=== PATIENT | female | born 1955 | race Caucasian/White ===

== ENCOUNTER → 2018-11-24 | Outpatient (CLI) | payer BC ==
[~2018-11-24] VITALS: Ht 167.6 cm; Wt 79.1 kg
[~2018-11-24] MED LIST: ACETAMINOPHEN 500 MG TAB PO ONE; ASPI-1044 PO; CEFAZOLIN 2 GM/50 ML (PMX) 50 ML IVPB ONE; CELE100C PO; DEXAMETHASONE 4 MG/ML 1 ML INJ IV ONE; DEXAMETHASONE 4 MG/ML 5 ML INJ ONE; FENTAnyl 50 MCG/ML VIAL ONE; GABA100C14 PO; GLYCOPYRROLATE 0.4 MG INJ ONE; LACTATED RINGER'S 1,000 ML IV* SCH; LIDOCAINE 2% (SDV) 5 ML INJ ONE; MIDAZOLAM 1 MG/ML 2 ML INJ ONE; NEOSTIGMINE 3 MG/3 ML SYRINGE ONE; ONDANSETRON 4 MG INJ ONE; PROPOFOL 20 ML ONE; ROCURONIUM 50 MG INJ ONE; SODI1GRA MC; TRANEXAMIC ACID 1,000 MG in NS 100 ML INTRA-OP X1 IVPB ONE; TRANEXAMIC ACID 1,000 MG in NS 100 ML PRE-OP X1 IVPB ONE
[2018-11-24 16:23] VITALS: Ht 167.6 cm; Wt 79.1 kg
[2018-12-01 09:55] VITALS: BP 110/60; PULSE 113; RESP 20
--- NOTE | 2018-12-01 11:45 | HPN ---
Date/Time of Note Date/Time of Note DATE: 12/01/18 TIME: 11:45 Interval H&P Admission Note Pt. seen H&P reviewed: Systems changes noted below The patient presented with a fever >101 and surgery was cancelled ASHA MOON Dec 01, 2018 11:45
== END | disposition home or self-care (01) ==
LOC: LAB 15:20 → REC 12-01 09:21 → LAB 12-01 09:21 → UNDOADMIN 12-01 09:21 → EDSTATUS 12-01 13:30
PROVIDERS: ATTEND Orthopaedic Surgery
DX: Z01.812 Encounter for preprocedural laboratory examination (principal); M17.12 Unilateral primary osteoarthritis, left knee
CPT/HCPCS: 86850; 86900; 86901; 87081; J0171; J0690; J0735; J1100; J1885; J2250; J2405; J2710; J2795; J3010; J7120

== ENCOUNTER 2019-01-05 10:33 | Inpatient (IN) | payer BC ==
[2018-12-26 13:46] VITALS: Ht 168.9 cm; Wt 79.5 kg
[2019-01-05] VITALS (22 sets, daily range): BP systolic 95–128; BP diastolic 51–70; PULSE 46–80; RESP 10–22
[~2019-01-05] VITALS: Ht 168.9 cm; Wt 79.5 kg
[2019-01-05] MEDS: LACTATED RINGER'S 1,000 ML IV SCH ×2 (11:18→17:49)
[2019-01-05] MEDS ORDERED: LANSOPRAZOLE 30 MG CAP PO ONE (12:00)
[2019-01-05] MEDS ORDERED: CEFAZOLIN 2 GM/50 ML (PMX) 50 ML (FOR WT < 120 KG) IVPB ONE (12:00)
[2019-01-05] MEDS ORDERED: LIDOCAINE 2% (SDV) 5 ML INJ ONE (12:00)
[2019-01-05] MEDS ORDERED: NEOSTIGMINE 10 MG INJ ONE (12:00)
[2019-01-05] MEDS ORDERED: DEXAMETHASONE 4 MG/ML 1 ML INJ IV ONE (12:00)
[2019-01-05] MEDS ORDERED: ACETAMINOPHEN 1000MG/100ML IV 100 ML IVPB ONE (12:00)
--- NOTE | 2019-01-05 12:10 | HPN ---
Date/Time of Note Date/Time of Note DATE: 01/05/19 TIME: 12:10 Interval H&P Admission Note Pt. seen H&P reviewed: No system changes ASHA MOON Jan 05, 2019 12:10
[2019-01-05] MEDS ORDERED: ONDANSETRON 4 MG INJ ONE (12:17)
[2019-01-05] MEDS ORDERED: MIDAZOLAM 1 MG/ML 2 ML INJ ONE (12:17)
[2019-01-05] MEDS ORDERED: ROCURONIUM 50 MG INJ ONE (12:17)
[2019-01-05] MEDS ORDERED: FENTAnyl 50 MCG/ML VIAL ONE (12:17)
[2019-01-05] MEDS ORDERED: CEFAZOLIN 1 GM INJ ONE (12:17)
[2019-01-05] MEDS ORDERED: PROPOFOL 20 ML ONE (12:17)
[2019-01-05] MEDS ORDERED: GLYCOPYRROLATE 0.4 MG INJ ONE (12:17)
[2019-01-05] MEDS ORDERED: DEXAMETHASONE 4 MG/ML 5 ML INJ ONE (12:18)
[2019-01-05] MEDS ORDERED: ROPIVACAINE 0.5 % 30 ML VIAL ONE (12:19)
[2019-01-05] MEDS ORDERED: BACITRACIN 50000 UNITS INJ ONE (12:25)
[2019-01-05] MEDS ORDERED: POLYMYXIN B 500000 UNIT INJ ONE (12:28)
--- NOTE | 2019-01-05 13:08 | PREAC ---
Date/Time of Note Date/Time of Note DATE: 01/05/19 TIME: 13:06 Anesthesia Eval and Record Evaluation Time Pre-Procedure Interview DATE: 01/05/19 TIME: 13:06 Age 63 Sex female NPO: 8 hrs Preoperative diagnosis LEFT KNEE PRIMARY OA Planned procedure LEFT TKA Past Medical History Past Medical History: Includes GI: GERD Surgery & Anesthesia Issues No known issue (GASTRIC SLEEVE) Meds Anticoagulation: No Beta Kemar within 24 hr: No Reason Beta Kemar not given: Pt. not on B-Kemar No Active Prescriptions or Reported Meds Current Medications Lactated Ringer's 1,000 ml @ 125 mls/hr Q8H IV Last administered on 01/05/19at 11:18; Admin Dose 125 MLS/HR; Start 01/05/19 at 12:00 Tranexamic Acid 100 ml @ 200 mls/hr AT INCISION ONCE IVPB ; Start 01/05/19 at 13:30; Stop 01/05/19 at 13:59 Tranexamic Acid 100 ml @ 330 mls/hr AT CLOSURE ONCE IVPB ; Start 01/05/19 at 13:30; Stop 01/05/19 at 13:48 Ropivacaine/ Clonidine/ Epinephrine/ Ketorolac Tromethamine/ Sodium Chloride INTRA-OP ONCE IRR ; Start 01/05/19 at 13:30; Stop 01/05/19 at 13:31 Meds reviewed: Yes Allergies Coded Allergies: levofloxacin (Verified Allergy, Severe, SWELLING, 01/05/19) Allergies Reviewed: Yes Labs/Studies Labs Reviewed: Reviewed by anesthesiologist Blood Bank Test 01/05/19 11:20 Antibody Screen NEGATIVE Blood Type A POSITIVE test: N/A Studies: ECG (SB@50), CXR (NAPD) Pre-procedure Exam Last vitals Vital Signs Date Temp Pulse Resp B/P (MAP) Pulse Ox O2 O2 Flow FiO2 Time Delivery Rate 01/05/19 97.5 58 16 128/62 97 Room Air 11:29 (84) Airway: Adequate mouth opening, Adequate thyromental dist Mallampati: Mallampati II Teeth: Normal Lung: Normal Heart: Normal ASA Physical Status ASA physical status: 2 Emergency: None Planned Anesthetic General/MAC: ETT Neuraxial: Spinal Nerve block: Femoral (left) Planned Pain Management Sub-arachniod narcotics, Single shot nerve block, Parenteral pain med Pre-operative Attestations Prior to commencing anesthesia and surgery, the patient was re-evaluated, there was verification of: *The patient's identity *The results of appropriate recent lab work and preoperative vital signs *The above evaluation not changing prior to induction *Anesthetic plan, risk benefits, alternative and complications discussed with patient/family; questions answered; patient/family understands, accepts and wishes to proceed. Mert Doyle M.D. Jan 05, 2019 13:08
[2019-01-05] MEDS ORDERED: FENTAnyl 50 MCG/ML VIAL IV PRN ×3 (13:30)
[2019-01-05] MEDS ORDERED: NALBUPHINE HCL (10 MG/1 ML) INJ IV PRN (13:30)
[2019-01-05] MEDS ORDERED: HYDROmorphONE 0.5 MG/0.5 ML SYG IV PRN ×2 (13:30)
[2019-01-05] MEDS ORDERED: LABETALOL HCL 20MG INJ IV PRN (13:30)
[2019-01-05] MEDS ORDERED: NALOXONE (0.4 MG/ML) INJ IV PRN ×2 (13:30→16:00)
[2019-01-05] MEDS ORDERED: EPHEDrine SULFATE 50 MG/5 ML SYG IV PRN (13:30)
[2019-01-05] MEDS ORDERED: IPRATROPIUM (NEB) 0.5 MG/2.5 ML AMP HHN PRN (13:30)
[2019-01-05] MEDS ORDERED: HYDROmorphONE 1 MG/5 ML IV SYRINGE IV PRN ×3 (13:30)
[2019-01-05] MEDS ORDERED: ZOLPIDEM 5 MG TAB PO PRN (13:30)
[2019-01-05] MEDS ORDERED: DIPHENHYDRAMINE 50 MG INJ IV PRN ×2 (13:30)
[2019-01-05] MEDS ORDERED: KETOROLAC 15 MG INJ IV PRN ×2 (13:30→16:00)
[2019-01-05] MEDS ORDERED: TRANEXAMIC ACID 1GM/100ML(PMX) 100 ML AT INCISION X1 IVPB ONE (13:30)
[2019-01-05] MEDS ORDERED: TRANEXAMIC ACID 1GM/100ML(PMX) 100 ML AT CLOSURE X1 IVPB ONE (13:30)
[2019-01-05] MEDS ORDERED: MIDAZOLAM 1 MG/ML 2 ML INJ IV PRN (13:30)
[2019-01-05] MEDS ORDERED: OXYCODONE/ACETAMINOPHEN (5/325) TAB PO PRN ×2 (13:30)
[2019-01-05] MEDS ORDERED: hydrALAzine 20 MG INJ IV PRN (13:30)
[2019-01-05] MEDS ORDERED: ONDANSETRON 4 MG INJ IV PRN ×2 (13:30)
[2019-01-05] MEDS ORDERED: ALBUTEROL 0.083% (NEB) 2.5 MG/3 ML AMP HHN PRN (13:30)
[2019-01-05] MEDS ORDERED: MEPERIDINE 25 MG INJ IV PRN (13:30)
[2019-01-05] MEDS ORDERED: TRIMETHOBENZAMIDE 100 MG/ML VIAL IM PRN ×2 (13:30)
[2019-01-05] MEDS ORDERED: KETOROLAC 30 MG INJ IV PRN (13:30)
[2019-01-05] MEDS ORDERED: morphine SULFATE/PF (10 MG/10 ML) INJ ONE (13:57)
--- NOTE | 2019-01-05 15:46 | SIPON ---
Date/Time of Note Date/Time of Note DATE: 01/05/19 TIME: 15:45 Operative Report Preoperative Diagnosis Left knee osteoarthritis Postoperative Diagnosis Same Operation/Procedure Performed Left total knee replacement Surgeon see signature line orthotic assistant HETAL Martinez Anesthesia: spinal Estimated blood loss: 250 - 300 ml's Transfusion Required none Specimen Bone Grafts/Implants Attune knee, size 6 femur, size 5 tibia, 35 patella and 7 mm of polyethylene Complications none ASHA MOON Jan 05, 2019 15:46
--- NOTE | 2019-01-05 15:49 | OPR ---
Date/Time of Note Date/Time of Note DATE: 01/05/19 TIME: 15:46 Operative Report Procedure Date: Jan 05, 2019 Preoperative Diagnosis Left knee osteoarthritis Postoperative Diagnosis Same Operation/Procedure Performed Left total knee replacement Surgeon see signature line Typecasting Machine Operator HETAL Martinez Anesthesia Type: spinal Estimated Blood Loss: 250 - 300 ml's Transfusion none Specimen Bone Grafts/Implants Attune knee, size 6 femur, 5 tibia, 35 patella and 7 mm of polyethylene Tubes/Drains None Complications none Pt Condition Post Procedure: stable Disposition: PACU Indications The patient is a 63-year-old female with advanced arthritis of her left knee Procedure Description The patient was placed supine on the operating room table. The left knee was prepped and draped in usual manner. Examination of the left knee showed flexion deformity of 10 degrees further flexion to 90. There was severe crepitus. An anterior incision was made. A mid vastus approach was made. The patella was displaced laterally without everting it. There was advanced arthritis of the knee with complete loss of cartilage and large osteophytes and loose bodies. Osteophytes and loose bodies were removed. Using intramedullary alignment, the distal femoral cut was made in 5 degrees of valgus. The femur was measured to be a size 6 from the [place] knee system. Anterior posterior and chamfer cuts were made. A notch was cut in the distal femur to accommodate the posterior stabilized femoral component. PCL was sacrificed, remnants of the menisci were removed. The tibia was cut using external alignment and the patella cut using a freehand technique. Trials were inserted including a 6 femur, 5 tibia, 35 patella and 7 mm of polyethylene. The knee had excellent range of motion with good stability and balance. Tracking was satisfactory. X-rays confirm proper alignment of the implants. Once satisfactory alignment was confirmed, final implants were cemented in place using a 6 narrow femur, 5 tibia, 35 patella. Excess cement was removed. 7 mm of polyethylene were placed in the knee closed in layers using #1 strata fix for deep fascia 2-0 Vicryl for subcutaneous tissue and 3-0 Monocryl for the skin. The knee was injected with pain cocktail ASHA MOON Jan 05, 2019 15:48
[2019-01-05] MEDS: CEFAZOLIN 2 GM/50 ML (PMX) 50 ML IVPB SCH (16:00)
[2019-01-05] MEDS ORDERED: MAGNESIUM HYDROXIDE 30ML CUP PO PRN (16:00)
[2019-01-05] MEDS ORDERED: NACL 0.9% 3 ML SYG IV SCH (16:00)
[2019-01-05] MEDS ORDERED: oxyCODONE 5 MG TAB PO PRN (16:00)
--- NOTE | 2019-01-05 16:36 | CONS ---
Assessment/Plan Assessment/Plan Problems: (1) Primary osteoarthritis of left knee Status: Resolved Comment: Per primary team (2) Aftercare following right knee joint replacement surgery Status: Acute Comment: Doing well POD#0. Primary team to manage PT and pain control. Will monitor for medical issues and will be happy to manage should they arise. Will follow with you. Consultation Date/Type/Reason Admit Date/Time Jan 05, 2019 at 10:33 Date of Consultation: Jan 05, 2019 Type of Consult Medicine Reason for Consultation Medical management Requesting Provider: ASHA MOON Date/Time of Note DATE: 01/05/19 TIME: 16:29 Hx of Present Illness 63 y/o C F w/ h/o morbid obesity and longstanding OA L knee. Pt. has lost 135 pounds as result of sleeve gastrectomy and now that she is more fit, finds that she was unable to do activity she wanted to do. Decided to have L TKA scheduled for today. Now POD#0 and doing well. Constitutional: no complaints, improved Eyes: no complaints ENT: no complaints Respiratory: no complaints Cardiovascular: no complaints Gastrointestinal: no complaints Genitourinary: no complaints Musculoskeletal: no complaints Neurologic: no complaints Past Medical History Medical History: no pertinent history Home Meds No Active Prescriptions or Reported Meds Medications Current Medications Lactated Ringer's 1,000 ml @ 125 mls/hr Q8H IV Last administered on 01/05/19at 11:18; Admin Dose 125 MLS/HR; Start 01/05/19 at 12:00 Hydromorphone HCl (Dilaudid) 0.2 mg PACU PRN IV MILD PAIN 1-3; Start 01/05/19 at 13:30; Stop 01/05/19 at 18:00 Hydromorphone HCl (Dilaudid) 0.4 mg PACU PRN IV MOD PAIN 4-6; Start 01/05/19 at 13:30; Stop 01/05/19 at 18:00 Hydromorphone HCl (Dilaudid) 0.6 mg PACU PRN IV SEVERE PAIN 7-10; Start 01/05/19 at 13:30; Stop 01/05/19 at 18:00 Fentanyl (Sublimaze) 25 mcg PACU ORDER PRN IV MILD PAIN 1-3; Start 01/05/19 at 13:30; Stop 01/05/19 at 18:00 Fentanyl (Sublimaze) 50 mcg PACU ORDER PRN IV MOD PAIN 4-6; Start 01/05/19 at 13:30; Stop 01/05/19 at 18:00 Fentanyl (Sublimaze) 75 mcg PACU ORDER PRN IV SEVERE PAIN 7-10; Start 01/05/19 at 13:30; Stop 01/05/19 at 18:00 Oxycodone/ Acetaminophen (Percocet (5/ 325)) 1 tab PACU ORDER PRN PO .PAIN 1-5; Start 01/05/19 at 13:30; Stop 01/05/19 at 18:00 Oxycodone/ Acetaminophen (Percocet (5/ 325)) 2 tab PACU ORDER PRN PO .PAIN 6-10; Start 01/05/19 at 13:30; Stop 01/05/19 at 18:00 Ondansetron HCl (Zofran Inj) 4 mg PACU ORDER PRN IV NAUSEA/VOMITING; Start 01/05/19 at 13:30; Stop 01/05/19 at 18:00 Trimethobenzamide HCl (Tigan) 200 mg PACU ORDER PRN IM NAUSEA/VOMITING; Start 01/05/19 at 13:30; Stop 01/05/19 at 18:00 Labetalol HCl (Labetalol) 5 mg PACU ORDER PRN IV HIGH BLOOD PRESSURE; Start 01/05/19 at 13:30; Stop 01/05/19 at 18:00 Hydralazine HCl (Apresoline) 5 mg PACU ORDER PRN IV HIGH BLOOD PRESSURE; Start 01/05/19 at 13:30; Stop 01/05/19 at 18:00 Ephedrine Sulfate 5 mg PACU ORDER PRN IV BLOOD PRESSURE SUPPORT; Start 01/05/19 at 13:30; Stop 01/05/19 at 18:00 Albuterol (Proventil 0.083% (Neb)) 2.5 mg PACU ORDER PRN HHN .WHEEZING; Start 01/05/19 at 13:30; Stop 01/05/19 at 18:00 Ipratropium [place] (Atrovent 0.02% (Neb)) 0.5 mg PACU ORDER PRN HHN .WHEEZING; Start 01/05/19 at 13:30; Stop 01/05/19 at 18:00 Meperidine HCl (Demerol) 25 mg PACU ORDER PRN IV .RIGORS; Start 01/05/19 at 13:30; Stop 01/05/19 at 18:00 Diphenhydramine HCl (Benadryl) 25 mg PACU ORDER PRN IV .PRURITUS; Start 01/05/19 at 13:30; Stop 01/05/19 at 18:00 Midazolam HCl (Versed) 0.5 mg PACU ORDER PRN IV .ANXIETY; Start 01/05/19 at 13:30; Stop 01/05/19 at 18:00 Hydromorphone HCl (Dilaudid) 0.2 mg Q2H PRN IV .PAIN 1-5; Start 01/05/19 at 13:30; Stop 01/06/19 at 13:11 Hydromorphone HCl (Dilaudid) 0.4 mg Q2H PRN IV .PAIN 6-10; Start 01/05/19 at 13:30; Stop 01/06/19 at 13:11 Ketorolac Tromethamine (Toradol) 15 mg Q6H PRN IV .PAIN 6-10; Start 01/05/19 at 13:30; Stop 01/06/19 at 13:29 Diphenhydramine HCl (Benadryl) 25 mg Q4H PRN IV .PRURITUS; Start 01/05/19 at 13:30; Stop 01/06/19 at 13:11 Nalbuphine HCl (Nubain) 10 mg Q4H PRN IV .PRURITUS; Start 01/05/19 at 13:30; Stop 01/06/19 at 13:11 Ondansetron HCl (Zofran Inj) 4 mg Q6H PRN IV .NAUSEA/VOMITING; Start 01/05/19 at 13:30; Stop 01/06/19 at 13:11 Trimethobenzamide HCl (Tigan) 200 mg Q6H PRN IM .NAUSEA/VOMITING; Start 01/05/19 at 13:30 Zolpidem Tartrate (Ambien) 5 mg HS MAY REPEAT X 1 PRN PO .INSOMNIA; Start 01/05/19 at 13:30; Stop 01/06/19 at 13:11 Naloxone HCl (Narcan) 0.2 mg Q2M PRN IV .RESP RATE; Start 01/05/19 at 13:30; Stop 01/06/19 at 13:11 Miscellaneous Information (* Miscellaneous Pharmacy Order) DURAMORPH: 0.1 MG SPI... GIVEN NEURAXIAL XX ; Start 01/05/19 at 13:30 IV Flush (NS 3 ml) 3 ml PER PROTOCOL IV ; Start 01/05/19 at 16:00 Oxycodone HCl (Roxicodone) 10 mg Q4H PRN PO .PAIN; Start 01/05/19 at 16:00 Oxycodone HCl (Roxicodone) 5 mg Q4H PRN PO .PAIN; Start 01/05/19 at 16:00 Ketorolac Tromethamine (Toradol) 15 mg Q6H PRN IV .PAIN; Start 01/05/19 at 16:00 Ondansetron HCl (Zofran Inj) 4 mg Q4H PRN IV NAUSEA/VOMITING; Start 01/06/19 at 16:00 Cefazolin Sodium/ Dextrose 50 ml @ 100 mls/hr Q8H IVPB ; Start 01/05/19 at 16:00; Stop 01/06/19 at 08:29 Celecoxib (Celebrex) 100 mg BID PO ; Start 01/06/19 at 09:00 Gabapentin (Neurontin) 100 mg TID PO ; Start 01/05/19 at 21:00 Pantoprazole (Protonix Tab) 40 mg DAILY@06 PO ; Start 01/07/19 at 06:00 Docusate Sodium (Colace) 200 mg BID PO ; Start 01/06/19 at 09:00; Stop 01/09/19 at 08:59 Magnesium Hydroxide (Milk Of Mag) 30 ml HS PRN PO .CONSTIPATION; Start 01/05/19 at 16:00 Naloxone HCl (Narcan) 0.2 mg Q2M PRN IV .RESP RATE; Start 01/05/19 at 16:00 Aspirin (Halfprin) 81 mg BID PO ; Start 01/06/19 at 09:00 Allergies: Coded Allergies: levofloxacin (Verified Allergy, Severe, SWELLING, 01/05/19) Past Surgical History Past Surgical Hx: other (sleeve gastrectomy) Family History Significant Family History: heart disease (father) Social History david 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, has MFA in theater, 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, single, 1 child Alcohol Use: rarely Smoking Status: Never smoker Drug Use: none Exam/Review of Systems Exam Vitals Vital Signs Date Temp Pulse Resp B/P (MAP) Pulse Ox O2 O2 Flow FiO2 Time Delivery Rate 01/05/19 98.1 16:20 01/05/19 58 16 128/62 97 Room Air 11:29 (84) Intake and Output 01/04/19 01/04/19 01/05/19 1515:00 23:00 07:00 IntakeIntake Total 2200 ml BalanceBalance 2200 ml Constitutional: alert, oriented, well developed Psych: no complaints, nl mood/affect Eyes: nl conjunctiva, EOMI, nl lids, nl sclera, PERRL ENMT: nl external ears & nose, mucosa pink and moist Neck: supple, non-tender; No bruits, No masses, No thyromegaly Respiratory: clear to auscultation, normal air movement Cardiovascular: regular rate and rhythm, nl pulses; No edema, No murmurs/extra sounds, No rub Gastrointestinal: soft, nl liver, spleen, non-tender, bowel sounds; No mass, No rebound or guarding Musculoskeletal: nl extremities to inspection Extremities: normal pulses; No cyanosis, No clubbing, No edema Neurological: AGRICULTURAL EXTENSION AGENT II-XII intact, nl mental status, nl speech, nl strength Medications Medication Current Medications Lactated Ringer's 1,000 ml @ 125 mls/hr Q8H IV Last administered on 01/05/19at 11:18; Admin Dose 125 MLS/HR; Start 01/05/19 at 12:00 Hydromorphone HCl (Dilaudid) 0.2 mg PACU PRN IV MILD PAIN 1-3; Start 01/05/19 at 13:30; Stop 01/05/19 at 18:00 Hydromorphone HCl (Dilaudid) 0.4 mg PACU PRN IV MOD PAIN 4-6; Start 01/05/19 at 13:30; Stop 01/05/19 at 18:00 Hydromorphone HCl (Dilaudid) 0.6 mg PACU PRN IV SEVERE PAIN 7-10; Start 01/05/19 at 13:30; Stop 01/05/19 at 18:00 Fentanyl (Sublimaze) 25 mcg PACU ORDER PRN IV MILD PAIN 1-3; Start 01/05/19 at 13:30; Stop 01/05/19 at 18:00 Fentanyl (Sublimaze) 50 mcg PACU ORDER PRN IV MOD PAIN 4-6; Start 01/05/19 at 13:30; Stop 01/05/19 at 18:00 Fentanyl (Sublimaze) 75 mcg PACU ORDER PRN IV SEVERE PAIN 7-10; Start 01/05/19 at 13:30; Stop 01/05/19 at 18:00 Oxycodone/ Acetaminophen (Percocet (5/ 325)) 1 tab PACU ORDER PRN PO .PAIN 1-5; Start 01/05/19 at 13:30; Stop 01/05/19 at 18:00 Oxycodone/ Acetaminophen (Percocet (5/ 325)) 2 tab PACU ORDER PRN PO .PAIN 6-10; Start 01/05/19 at 13:30; Stop 01/05/19 at 18:00 Ondansetron HCl (Zofran Inj) 4 mg PACU ORDER PRN IV NAUSEA/VOMITING; Start 01/05/19 at 13:30; Stop 01/05/19 at 18:00 Trimethobenzamide HCl (Tigan) 200 mg PACU ORDER PRN IM NAUSEA/VOMITING; Start 01/05/19 at 13:30; Stop 01/05/19 at 18:00 Labetalol HCl (Labetalol) 5 mg PACU ORDER PRN IV HIGH BLOOD PRESSURE; Start 01/05/19 at 13:30; Stop 01/05/19 at 18:00 Hydralazine HCl (Apresoline) 5 mg PACU ORDER PRN IV HIGH BLOOD PRESSURE; Start 01/05/19 at 13:30; Stop 01/05/19 at 18:00 Ephedrine Sulfate 5 mg PACU ORDER PRN IV BLOOD PRESSURE SUPPORT; Start 01/05/19 at 13:30; Stop 01/05/19 at 18:00 Albuterol (Proventil 0.083% (Neb)) 2.5 mg PACU ORDER PRN HHN .WHEEZING; Start 01/05/19 at 13:30; Stop 01/05/19 at 18:00 Ipratropium [place] (Atrovent 0.02% (Neb)) 0.5 mg PACU ORDER PRN HHN .WHEEZING; Start 01/05/19 at 13:30; Stop 01/05/19 at 18:00 Meperidine HCl (Demerol) 25 mg PACU ORDER PRN IV .RIGORS; Start 01/05/19 at 13:30; Stop 01/05/19 at 18:00 Diphenhydramine HCl (Benadryl) 25 mg PACU ORDER PRN IV .PRURITUS; Start 01/05/19 at 13:30; Stop 01/05/19 at 18:00 Midazolam HCl (Versed) 0.5 mg PACU ORDER PRN IV .ANXIETY; Start 01/05/19 at 13:30; Stop 01/05/19 at 18:00 Hydromorphone HCl (Dilaudid) 0.2 mg Q2H PRN IV .PAIN 1-5; Start 01/05/19 at 13:30; Stop 01/06/19 at 13:11 Hydromorphone HCl (Dilaudid) 0.4 mg Q2H PRN IV .PAIN 6-10; Start 01/05/19 at 13:30; Stop 01/06/19 at 13:11 Ketorolac Tromethamine (Toradol) 15 mg Q6H PRN IV .PAIN 6-10; Start 01/05/19 at 13:30; Stop 01/06/19 at 13:29 Diphenhydramine HCl (Benadryl) 25 mg Q4H PRN IV .PRURITUS; Start 01/05/19 at 13:30; Stop 01/06/19 at 13:11 Nalbuphine HCl (Nubain) 10 mg Q4H PRN IV .PRURITUS; Start 01/05/19 at 13:30; Stop 01/06/19 at 13:11 Ondansetron HCl (Zofran Inj) 4 mg Q6H PRN IV .NAUSEA/VOMITING; Start 01/05/19 at 13:30; Stop 01/06/19 at 13:11 Trimethobenzamide HCl (Tigan) 200 mg Q6H PRN IM .NAUSEA/VOMITING; Start 01/05/19 at 13:30 Zolpidem Tartrate (Ambien) 5 mg HS MAY REPEAT X 1 PRN PO .INSOMNIA; Start 01/05/19 at 13:30; Stop 01/06/19 at 13:11 Naloxone HCl (Narcan) 0.2 mg Q2M PRN IV .RESP RATE; Start 01/05/19 at 13:30; Stop 01/06/19 at 13:11 Miscellaneous Information (* Miscellaneous Pharmacy Order) DURAMORPH: 0.1 MG SPI... GIVEN NEURAXIAL XX ; Start 01/05/19 at 13:30 IV Flush (NS 3 ml) 3 ml PER PROTOCOL IV ; Start 01/05/19 at 16:00 Oxycodone HCl (Roxicodone) 10 mg Q4H PRN PO .PAIN; Start 01/05/19 at 16:00 Oxycodone HCl (Roxicodone) 5 mg Q4H PRN PO .PAIN; Start 01/05/19 at 16:00 Ketorolac Tromethamine (Toradol) 15 mg Q6H PRN IV .PAIN; Start 01/05/19 at 16:00 Ondansetron HCl (Zofran Inj) 4 mg Q4H PRN IV NAUSEA/VOMITING; Start 01/06/19 at 16:00 Cefazolin Sodium/ Dextrose 50 ml @ 100 mls/hr Q8H IVPB ; Start 01/05/19 at 16:00; Stop 01/06/19 at 08:29 Celecoxib (Celebrex) 100 mg BID PO ; Start 01/06/19 at 09:00 Gabapentin (Neurontin) 100 mg TID PO ; Start 01/05/19 at 21:00 Pantoprazole (Protonix Tab) 40 mg DAILY@06 PO ; Start 01/07/19 at 06:00 Docusate Sodium (Colace) 200 mg BID PO ; Start 01/06/19 at 09:00; Stop 01/09/19 at 08:59 Magnesium Hydroxide (Milk Of Mag) 30 ml HS PRN PO .CONSTIPATION; Start 01/05/19 at 16:00 Naloxone HCl (Narcan) 0.2 mg Q2M PRN IV .RESP RATE; Start 01/05/19 at 16:00 Aspirin (Halfprin) 81 mg BID PO ; Start 01/06/19 at 09:00 MARCO KNOTT MD Jan 05, 2019 16:36
--- NOTE | 2019-01-05 16:38 | PAC ---
Date/Time of Note Date/Time of Note DATE: 01/05/19 TIME: 16:38 Post-Anesthesia Notes Post-Anesthesia Note Last documented vital signs Vital Signs Date Temp Pulse Resp B/P (MAP) Pulse Ox O2 O2 Flow FiO2 Time Delivery Rate 01/05/19 98.1 16:38 01/05/19 58 16 128/62 97 Room Air 11:29 (84) Activity: WNL Respiratory function: WNL Cardiovascular function: WNL Mental status: Baseline Pain reasonably controlled: Yes Hydration appropriate: Yes Nausea/Vomiting absent: Yes Mert Doyle M.D. Jan 05, 2019 16:38
[2019-01-05] MEDS: GABAPENTIN 100 MG CAP PO SCH (20:52)
[2019-01-06] VITALS (8 sets, daily range): BP systolic 90–134; BP diastolic 54–65; PULSE 56–66; RESP 17–20
[2019-01-06] MEDS: CEFAZOLIN 2 GM/50 ML (PMX) 50 ML IVPB SCH ×2 (00:10→08:19)
[2019-01-06] MEDS: LACTATED RINGER'S 1,000 ML IV SCH ×3 (05:35→20:00)
[2019-01-06] MEDS: CELECOXIB 100 MG CAP PO SCH ×2 (08:18→20:51)
[2019-01-06] MEDS: ASPIRIN (EC) 81 MG TAB PO SCH ×2 (08:18→20:51)
[2019-01-06] MEDS: GABAPENTIN 100 MG CAP PO SCH ×3 (08:18→20:50)
[2019-01-06] MEDS: DOCUSATE SODIUM 100 MG CAP PO SCH ×2 (08:18→20:51)
[2019-01-06] MEDS ORDERED: SOD CHLORIDE 0.9% 1,000 ML IV ONE (15:00)
--- NOTE | 2019-01-06 15:10 | RADRPT ---
Vent Rate: 58 bpm RR Interval: 0 msec W[place] Interval: 132 msec QRS Duration: 86 msec QT Interval: 422 msec QTC Interval: 414 msec P-R-T [place]: 72 - 71 - 68 degrees Sinus bradycardia Otherwise normal ECG Electronically Signed By: Roberto Aguilar
--- NOTE | 2019-01-06 15:20 | PN ---
Date/Time of Note Date/Time of Note DATE: 01/06/19 TIME: 15:19 Assessment/Plan Lines/Catheters IV Catheter Type (from Nrs): Peripheral IV Assessment/Plan Assessment/Plan The patient will be discharged home, follow up in 2 weeks. Subjective 24 Hr Interval Summary progressing well after TKA Exam/Review of Systems Vital Signs Vitals Vital Signs Date Temp Pulse Resp B/P (MAP) Pulse Ox O2 O2 Flow FiO2 Time Delivery Rate 01/06/19 98.0 65 18 105/55 13:55 (72) 01/06/19 96 Room Air 08:09 01/05/19 2.0 16:43 Intake and Output 01/05/19 01/05/19 01/06/19 1515:00 23:00 07:00 IntakeIntake Total 200 ml 200 ml 1050 ml OutputOutput Total 50 ml BalanceBalance 200 ml 150 ml 1050 ml Exam Free Text/Dictation dressing intact, no NV deficit Results Result Diagram: 01/06/190 01/06/19 0420 ASHA MOON Jan 06, 2019 15:20
[2019-01-06] MEDS ORDERED: ONDANSETRON 4 MG INJ IV PRN (16:00)
--- NOTE | 2019-01-06 17:42 | CONS ---
Assessment/Plan Assessment/Plan Problems: (1) Syncope Status: Resolved Comment: Happened x 1 following PT. Pt. reports propensity towards syncope in the past. Have given 1 L NS IV bolus. Doubt this will recur. No further w/u required. (2) Primary osteoarthritis of left knee Status: Resolved Comment: Per primary team (3) Aftercare following right knee joint replacement surgery Status: Acute Comment: Doing well POD#1. Primary team was planning d/c today but will monit or until tomorrow and plan d/c at that time if syncope does not recur. Consultation Date/Type/Reason Admit Date/Time Jan 05, 2019 at 10:33 Initial Consult Date 01/05/19 Type of Consult Medicine Reason for Consultation Medical Management Requesting Provider: ASHA MOON Date/Time of Note DATE: 01/06/19 TIME: 17:39 24 HR Interval Summary Constitutional: no complaints, improved Detailed Summary Respiratory: no complaints Cardiovascular: other (syncope x 1 today after PT) Gastrointestinal: no complaints Genitourinary: no complaints Musculoskeletal: no complaints Neurologic: no complaints Exam/Review of Systems Exam Vitals VS - Last 72 Hours, by Label Date Temp Pulse Resp B/P (MAP) Pulse Ox O2 O2 Flow FiO2 Time Delivery Rate 01/06/19 58 104/58 17:00 (73) 01/06/19 58 97/55 (69) 15:30 01/06/19 56 18 90/54 (66) 94 Room Air 14:45 01/06/19 98.0 65 18 105/55 13:55 (72) 01/06/19 97.8 57 18 98/54 (69) 96 Room Air 08:09 01/06/19 98.0 56 18 105/61 98 Room Air 05:37 (76) 01/06/19 98.6 60 17 134/65 98 Room Air 00:09 (88) 01/05/19 52 18 106/63 96 Room Air 21:00 (77) 01/05/19 98.3 51 20 109/61 96 Room Air 19:52 (77) 01/05/19 56 18 101/62 94 Room Air 19:20 (75) 01/05/19 47 16 95/51 (66) 98 Room Air 18:42 01/05/19 46 16 97/55 (69) 98 Room Air 18:30 01/05/19 60 16 118/70 98 Room Air 18:00 (86) 01/05/19 97.0 61 16 106/64 98 Room Air 17:45 (78) 01/05/19 52 22 105/57 97 Room Air 17:23 (73) 01/05/19 52 15 103/54 97 Room Air 17:18 (70) 01/05/19 58 13 101/57 97 Room Air 17:13 (72) 01/05/19 52 13 103/55 96 Room Air 17:08 (71) 01/05/19 52 10 117/54 97 Room Air 17:03 (75) 01/05/19 58 13 104/56 100 Room Air 16:58 (72) 01/05/19 52 11 106/57 100 Room Air 16:53 (73) 01/05/19 52 13 107/62 100 Room Air 16:48 (77) 01/05/19 56 10 103/60 100 Nasal 2.0 16:43 (74) Cannula 01/05/19 58 14 109/61 100 Nasal 2.0 16:38 (77) Cannula 01/05/19 60 10 107/57 100 Nasal 2.0 16:33 (74) Cannula 01/05/19 74 19 114/65 99 Nasal 2.0 16:28 (81) Cannula 01/05/19 80 16 119/61 100 Nasal 2.0 16:23 (80) Cannula 01/05/19 98.1 16:20 01/05/19 98.0 80 16 125/64 100 Nasal 2.0 16:18 (84) Cannula 01/05/19 97.5 58 16 128/62 97 Room Air 11:29 (84) Vital Signs Date Temp Pulse Resp B/P (MAP) Pulse Ox O2 O2 Flow FiO2 Time Delivery Rate 01/06/19 58 104/58 17:00 (73) 01/06/19 18 94 Room Air 14:45 01/06/19 98.0 13:55 01/05/19 2.0 16:43 Intake and Output 01/05/19 01/05/19 01/06/19 1515:00 23:00 07:00 IntakeIntake Total 200 ml 200 ml 1050 ml OutputOutput Total 50 ml BalanceBalance 200 ml 150 ml 1050 ml Constitutional: alert, oriented, well developed Psych: no complaints, nl mood/affect Respiratory: clear to auscultation, normal air movement Cardiovascular: regular rate and rhythm, nl pulses; No edema, No murmurs/extra sounds, No rub Gastrointestinal: soft, nl liver, spleen, non-tender, bowel sounds; No mass, No rebound or guarding Musculoskeletal: nl extremities to inspection Extremities: normal pulses; No cyanosis, No clubbing, No edema Neurological: BIBLIOGRAPHIC SERVICES SPECIALIST II-XII intact, nl mental status, nl speech, nl strength Results Result Diagram: 01/06/1941901/06/19 0420 Results 24hrs Laboratory Tests Test 01/06/19 04:20 White Blood Count 9.6 Red Blood Count 3.19 L Hemoglobin 9.9 L Hematocrit 30.1 L Mean Corpuscular Volume 94.4 Mean Corpuscular Hemoglobin 31.0 Mean Corpuscular Hemoglobin Concent 32.9 Red Cell Distribution Width 13.2 Platelet Count 192 Mean Platelet Volume 10.2 Immature Granulocytes % 0.300 Neutrophils % 88.4 H Lymphocytes % 6.0 L Monocytes % 5.2 Eosinophils % 0.0 Basophils % 0.1 Nucleated Red Blood Cells % 0.0 Immature Granulocytes # 0.030 Neutrophils # 8.5 H Lymphocytes # 0.6 L Monocytes # 0.5 Eosinophils # 0.0 Basophils # 0.0 Nucleated Red Blood Cells # 0.0 Sodium Level 136 Potassium Level 4.5 Chloride Level 104 Carbon Dioxide Level 27 Anion Gap 5 Blood Urea Nitrogen 13 Creatinine 0.51 Est Glomerular Filtrat Rate mL/min > 60 Glucose Level 135 Calcium Level 9.1 Medications Medication Current Medications Lactated Ringer's 1,000 ml @ 125 mls/hr Q8H IV Last administered on 01/06/19at 05:35; Admin Dose 125 MLS/HR; Start 01/05/19 at 12:00 Trimethobenzamide HCl (Tigan) 200 mg Q6H PRN IM .NAUSEA/VOMITING; Start 01/05/19 at 13:30 Miscellaneous Information (* Miscellaneous Pharmacy Order) DURAMORPH: 0.1 MG SPI... GIVEN NEURAXIAL XX ; Start 01/05/19 at 13:30 IV Flush (NS 3 ml) 3 ml PER PROTOCOL IV ; Start 01/05/19 at 16:00 Oxycodone HCl (Roxicodone) 10 mg Q4H PRN PO .PAIN; Start 01/05/19 at 16:00 Oxycodone HCl (Roxicodone) 5 mg Q4H PRN PO .PAIN; Start 01/05/19 at 16:00 Ketorolac Tromethamine (Toradol) 15 mg Q6H PRN IV .PAIN; Start 01/05/19 at 16:00 Ondansetron HCl (Zofran Inj) 4 mg Q4H PRN IV NAUSEA/VOMITING Last administered on 01/05/19at 22:59; Admin Dose 4 MG; Start 01/06/19 at 16:00 Celecoxib (Celebrex) 100 mg BID PO Last administered on 01/06/19at 08:18; Admin Dose 100 MG; Start 01/06/19 at 09:00 Gabapentin (Neurontin) 100 mg TID PO Last administered on 01/06/19at 14:00; Admin Dose 100 MG; Start 01/05/19 at 21:00 Pantoprazole (Protonix Tab) 40 mg DAILY@06 PO ; Start 01/07/19 at 06:00 Docusate Sodium (Colace) 200 mg BID PO Last administered on 01/06/19at 08:18; Admin Dose 200 MG; Start 01/06/19 at 09:00; Stop 01/09/19 at 08:59 Magnesium Hydroxide (Milk Of Mag) 30 ml HS PRN PO .CONSTIPATION; Start 01/05/19 at 16:00 Naloxone HCl (Narcan) 0.2 mg Q2M PRN IV .RESP RATE; Start 01/05/19 at 16:00 Aspirin (Halfprin) 81 mg BID PO Last administered on 01/06/19at 08:18; Admin Dose 81 MG; Start 01/06/19 at 09:00 MARCO KNOTT MD Jan 06, 2019 17:42
[2019-01-06] MEDS: oxyCODONE 5 MG TAB PO PRN (22:22)
[2019-01-07 02:04] VITALS: BP 109/51; PULSE 58; RESP 20
[2019-01-07] MEDS: LACTATED RINGER'S 1,000 ML IV SCH (04:00)
[2019-01-07] MEDS ORDERED: PANTOPRAZOLE (EC) 40 MG TAB PO SCH (06:00)
[2019-01-07] MEDS: oxyCODONE 5 MG TAB PO PRN (06:11)
[2019-01-07 07:22] VITALS: BP 125/68; PULSE 68; RESP 18
[2019-01-07] MEDS: ASPIRIN (EC) 81 MG TAB PO SCH (08:14)
[2019-01-07] MEDS: GABAPENTIN 100 MG CAP PO SCH ×2 (08:14→12:29)
[2019-01-07] MEDS: DOCUSATE SODIUM 100 MG CAP PO SCH (08:14)
[2019-01-07] MEDS: CELECOXIB 100 MG CAP PO SCH (08:14)
--- NOTE | 2019-01-07 10:48 | PDOCDIS ---
Discharge Instructions CONDITION [id number] Patient Condition: [id number] Good HOME CARE INSTRUCTIONS: [id number] Diet Instructions: [id number] Regular ACTIVITY: [id number] Activity Restrictions: [id number] Slowly Increase Activity Rest between Activity Avoid heavy lifting Do not Drive Do not operate Machinery Do not operate Power Tool Avoid Heavy Housework [id number] Bathing Restrictions: [id number] Tub Bath FOLLOW UP/APPOINTMENTS Follow-up Plan f/u w/ Dr. Rice as scheduled MARCO KNOTT MD Jan 07, 2019 10:48
[2019-01-07] MEDS ORDERED: GABA100C14 PO (10:53)
[2019-01-07] MEDS ORDERED: CELE100C PO (10:53)
[2019-01-07] MEDS ORDERED: ASPI-1044 PO (10:53)
[2019-01-07] MEDS ORDERED: SODI1GRA MC (10:53)
--- NOTE | 2019-01-07 10:56 | CONS ---
Assessment/Plan Assessment/Plan Problems: (1) Syncope Status: Resolved Comment: BP low during PT today. Pt. again lightheaded although did not lose consciousness. Reports h/o tendency towards syncope in the past. Ok for d/c home from med standpoint. Will Rx salt tabs and rec. pt. take tid. Expect this should prevent further episodes of syncope. O/w ok for d/c from med standpoint. (2) Primary osteoarthritis of left knee Status: Resolved Comment: Per primary team (3) Aftercare following right knee joint replacement surgery Status: Acute Comment: Doing well POD#2. Pain controlled. Ok for d/c home from med standpoint w/ salt tabs. Consultation Date/Type/Reason Admit Date/Time Jan 05, 2019 at 10:33 Initial Consult Date 01/05/19 Type of Consult Medicine Reason for Consultation Medical Management Requesting Provider: ASHA MOON Date/Time of Note DATE: 01/07/19 TIME: 10:54 24 HR Interval Summary Constitutional: no complaints, improved Detailed Summary Respiratory: no complaints Cardiovascular: lightheadedness (did not have syncope but BP was low during PT today) Gastrointestinal: no complaints Genitourinary: no complaints Musculoskeletal: no complaints Neurologic: no complaints Exam/Review of Systems Exam Vitals VS - Last 72 Hours, by Label Date Temp Pulse Resp B/P (MAP) Pulse Ox O2 O2 Flow FiO2 Time Delivery Rate 01/07/19 98.0 68 18 125/68 96 Room Air 07:22 (87) 01/07/19 98.3 58 20 109/51 98 Room Air 02:04 (70) 01/06/19 98.3 66 20 107/65 95 Room Air 20:02 (79) 01/06/19 58 104/58 17:00 (73) 01/06/19 58 97/55 (69) 15:30 01/06/19 56 18 90/54 (66) 94 Room Air 14:45 01/06/19 98.0 65 18 105/55 13:55 (72) 01/06/19 97.8 57 18 98/54 (69) 96 Room Air 08:09 01/06/19 98.0 56 18 105/61 98 Room Air 05:37 (76) 01/06/19 98.6 60 17 134/65 98 Room Air 00:09 (88) 01/05/19 52 18 106/63 96 Room Air 21:00 (77) 01/05/19 98.3 51 20 109/61 96 Room Air 19:52 (77) 01/05/19 56 18 101/62 94 Room Air 19:20 (75) 01/05/19 47 16 95/51 (66) 98 Room Air 18:42 01/05/19 46 16 97/55 (69) 98 Room Air 18:30 01/05/19 60 16 118/70 98 Room Air 18:00 (86) 01/05/19 97.0 61 16 106/64 98 Room Air 17:45 (78) 01/05/19 52 22 105/57 97 Room Air 17:23 (73) 01/05/19 52 15 103/54 97 Room Air 17:18 (70) 01/05/19 58 13 101/57 97 Room Air 17:13 (72) 01/05/19 52 13 103/55 96 Room Air 17:08 (71) 01/05/19 52 10 117/54 97 Room Air 17:03 (75) 01/05/19 58 13 104/56 100 Room Air 16:58 (72) 01/05/19 52 11 106/57 100 Room Air 16:53 (73) 01/05/19 52 13 107/62 100 Room Air 16:48 (77) 01/05/19 56 10 103/60 100 Nasal 2.0 16:43 (74) Cannula 01/05/19 58 14 109/61 100 Nasal 2.0 16:38 (77) Cannula 01/05/19 60 10 107/57 100 Nasal 2.0 16:33 (74) Cannula 01/05/19 74 19 114/65 99 Nasal 2.0 16:28 (81) Cannula 01/05/19 80 16 119/61 100 Nasal 2.0 16:23 (80) Cannula 01/05/19 98.1 16:20 01/05/19 98.0 80 16 125/64 100 Nasal 2.0 16:18 (84) Cannula 01/05/19 97.5 58 16 128/62 97 Room Air 11:29 (84) Vital Signs Date Temp Pulse Resp B/P (MAP) Pulse Ox O2 O2 Flow FiO2 Time Delivery Rate 01/07/19 98.0 68 18 125/68 96 Room Air 07:22 (87) 01/05/19 2.0 16:43 Intake and Output 01/06/19 01/06/19 01/07/19 1515:00 23:00 07:00 IntakeIntake Total 1890 ml 1660 ml 500 ml BalanceBalance 1890 ml 1660 ml 500 ml Constitutional: alert, oriented, well developed Psych: no complaints, nl mood/affect Respiratory: clear to auscultation, normal air movement Cardiovascular: regular rate and rhythm, nl pulses; No edema, No murmurs/extra sounds, No rub Gastrointestinal: soft, nl liver, spleen, non-tender, bowel sounds; No mass, No rebound or guarding Musculoskeletal: nl extremities to inspection Extremities: normal pulses; No cyanosis, No clubbing, No edema Neurological: RELAY TECHNICIAN II-XII intact, nl mental status, nl speech, nl strength Results Result Diagram: 01/07/1942001/07/19 0421 Results 24hrs Laboratory Tests Test 01/07/19 04:21 White Blood Count 5.1 # Red Blood Count 2.85 L Hemoglobin 8.8 L Hematocrit 26.3 L Mean Corpuscular Volume 92.3 Mean Corpuscular Hemoglobin 30.9 Mean Corpuscular Hemoglobin Concent 33.5 Red Cell Distribution Width 13.6 Platelet Count 158 Mean Platelet Volume 10.1 Immature Granulocytes % 0.400 Neutrophils % 47.2 Lymphocytes % 40.8 Monocytes % 9.6 Eosinophils % 1.6 Basophils % 0.4 Nucleated Red Blood Cells % 0.0 Immature Granulocytes # 0.020 Neutrophils # 2.4 Lymphocytes # 2.1 Monocytes # 0.5 Eosinophils # 0.1 Basophils # 0.0 Nucleated Red Blood Cells # 0.0 Sodium Level 138 Potassium Level 4.4 Chloride Level 104 Carbon Dioxide Level 29 Anion Gap 5 Blood Urea Nitrogen 13 Creatinine 0.72 Est Glomerular Filtrat Rate mL/min > 60 Glucose Level 81 # Calcium Level 8.7 Medications Medication Current Medications Lactated Ringer's 1,000 ml @ 125 mls/hr Q8H IV Last administered on 01/06/19at 05:35; Admin Dose 125 MLS/HR; Start 01/05/19 at 12:00 Trimethobenzamide HCl (Tigan) 200 mg Q6H PRN IM .NAUSEA/VOMITING; Start 01/05/19 at 13:30 Miscellaneous Information (* Miscellaneous Pharmacy Order) DURAMORPH: 0.1 MG SPI... GIVEN NEURAXIAL XX ; Start 01/05/19 at 13:30 IV Flush (NS 3 ml) 3 ml PER PROTOCOL IV ; Start 01/05/19 at 16:00 Oxycodone HCl (Roxicodone) 10 mg Q4H PRN PO .PAIN Last administered on 01/07/19 06:11; Admin Dose 10 MG; Start 01/05/19 at 16:00 Oxycodone HCl (Roxicodone) 5 mg Q4H PRN PO .PAIN; Start 01/05/19 at 16:00 Ketorolac Tromethamine (Toradol) 15 mg Q6H PRN IV .PAIN; Start 01/05/19 at 16:00 Ondansetron HCl (Zofran Inj) 4 mg Q4H PRN IV NAUSEA/VOMITING Last administered on 01/05/19at 22:59; Admin Dose 4 MG; Start 01/06/19 at 16:00 Celecoxib (Celebrex) 100 mg BID PO Last administered on 01/07/19 08:14; Admin Dose 100 MG; Start 01/06/19 at 09:00 Gabapentin (Neurontin) 100 mg TID PO Last administered on 01/07/19 08:14; Admin Dose 100 MG; Start 01/05/19 at 21:00 Pantoprazole (Protonix Tab) 40 mg DAILY@06 PO Last administered on 01/07/19 06:08; Admin Dose 40 MG; Start 01/07/19 at 06:00 Docusate Sodium (Colace) 200 mg BID PO Last administered on 01/07/19 08:14; Admin Dose 200 MG; Start 01/06/19 at 09:00; Stop 01/09/19 at 08:59 Magnesium Hydroxide (Milk Of Mag) 30 ml HS PRN PO .CONSTIPATION; Start 01/05/19 at 16:00 Naloxone HCl (Narcan) 0.2 mg Q2M PRN IV .RESP RATE; Start 01/05/19 at 16:00 Aspirin (Halfprin) 81 mg BID PO Last administered on 01/07/19 08:14; Admin Dose 81 MG; Start 01/06/19 at 09:00 MARCO KNOTT MD Jan 07, 2019 10:56
[2019-01-07 13:30] VITALS: BP 102/56; PULSE 61
== END 2019-01-07 14:00 | disposition home health service (06) | DRG 470 ==
LOC: REC 10:33 → EDSTATUS 15:00 → MS1 17:32
PROVIDERS: ADMIT Orthopaedic Surgery; ATTEND Orthopaedic Surgery
PROC: 0SRD0J9 Replacement of Left Knee Joint with Synthetic Substitute, Cemented, Open Approach (ICD-10-PCS; principal; 2019-01-05 12:30)
DX: M17.12 Unilateral primary osteoarthritis, left knee (principal); R55 Syncope and collapse
CPT/HCPCS: 73560; 80048; 85025; 86850; 86900; 86901; 87081; 88304; 88311; 93005; 97116; 97161; 97530; C1713; C1776; J0131; J0171; J0690; J0735; J1100; J1885; J2250; J2274; J2405; J2710; J2795; J3010; J7030; J7120